=== PATIENT | male | born 1980 | race Caucasian/White ===

== ENCOUNTER 2018-10-16 16:24 | Inpatient (IN) | payer OTHER ==
[~2018-10-16] VITALS: Ht 185.4 cm; Wt 99.8 kg
[2018-10-16] MEDS ORDERED: SIMVASTATIN10 MG (16:28)
[2018-10-20] MEDS ORDERED: ACIDOPHILUS-PE1 EAC2 PO (13:29)
[2018-10-20] MEDS ORDERED: CIPRO500 MG PO (13:30)
== END 2018-10-20 15:50 | disposition home or self-care (01) | DRG 690 ==
LOC: ER 16:24 → SURH 10-17 09:42
PROVIDERS: ADMIT Internal Medicine
PROC: BV49ZZZ Ultrasonography of Prostate and Seminal Vesicles (ICD-10-PCS; principal; 2018-10-18)
DX: N39.0 Urinary tract infection, site not specified (principal); E78.00 Pure hypercholesterolemia, unspecified; K76.0 Fatty (change of) liver, not elsewhere classified; D72.828 Other elevated white blood cell count; R97.20 Elevated prostate specific antigen [PSA]